=== PATIENT | female | born 1995 | race Caucasian/White ===

== ENCOUNTER 2024-12-19 16:05 | Emergency (ER) | payer MEDICAID, SELFPAY ==
[2024-12-19 16:28] VITALS: BP 140/81; PULSE 80; RESP 18; TEMP 36.7; O2SAT 99; BMI 31.2
--- NOTE | 2024-12-19 16:47 | CT_ITS ---
PROCEDURE INFORMATION: Exam: CT Lumbar Spine Without Contrast Exam date and time: 12/19/2024 5:03 PM Age: 29 years old Clinical indication: Low back pain; Additional info: Low back pain with radiculopathy TECHNIQUE: Imaging protocol: Computed tomography of the lumbar spine without contrast. Radiation optimization: All CT scans at this facility use at least one of these dose optimization techniques: automated exposure control; mA and/or kV adjustment per patient size (includes targeted exams where dose is matched to clinical indication); or iterative reconstruction. COMPARISON: No relevant prior studies available. FINDINGS: Bones/joints: The thoracolumbar spine demonstrates mild degenerative changes at multiple levels. There is minor concavity to the superior endplate of L1 which may reflect Schmorl's node changes. There is a limbus vertebra involving the anterior superior corner of L4 with marginal osteophytes. Minor endplate discogenic degenerative changes and marginal osteophytes are also present from L3 through S1. Vertebral body heights are otherwise within range of normal. No compression fractures. Alignment appears preserved. No significant central canal or neural foraminal stenosis at the L1-L2 level. No significant central canal, neural foraminal stenosis at the L2-L3 level. There is mild diffuse annular bulge at the L3-L4 level producing mild Medrol effacement upon the thecal sac and mild central canal stenosis. There is a posterior central bar/disc at the L4-L5 level resulting in moderate to marked central canal stenosis at this level. There is [id number] bilateral neural foraminal narrowing at this level. No significant central canal or neural foraminal stenosis at the L5-S1 level. Soft tissues: The paravertebral soft tissues are within range of normal. No significant soft tissue edema. No focal hematoma.There are mild degenerative changes of the sacroiliac joints. IMPRESSION: Moderate posterior central bar/disc at the L4-L5 level resulting in moderate to marked central canal stenosis. There is [id number] bilateral neural foraminal narrowing at this level. No acute posttraumatic osseous injury. 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
--- NOTE | 2024-12-19 17:10 | ED_ITS ---
<Statement entered by Stephanie Llanes DO - 12/20/24 00:22> I was consulted by the KALI, and we discussed the complexity of problems being addressed. I approve the treatment and management plan for this patient's care in the emergency department, thus performing a substantial portion of the medical decision making. Stephanie Llanes DO Discharge Plan Disposition Patient Disposition: Home, Self-Care Prescriptions Prescriptions: New tizanidine [Zanaflex] 4 mg capsule 4 mg PO Q8H PRN (Reason: muscle spasticity) Qty: 10 0RF prednisone 20 mg tablet 40 mg PO DAILY Qty: 10 0RF Referrals Follow up/Referrals: Say Franco MD [Nurse Practitioner, Pain Management] - See instructions Provider,MD Tita [Primary Care Provider, Medical] - See instructions Clinical Impressions Clinical Impression: Lumbar radiculopathy Instructions Patient Instructions: DI for Low Back Pain Print Language Print Language: Irish Discharge ED Provider: Stephanie Llanes General Adult HPI General Chief complaint: Back Pain/Injury Stated complaint: Severe Lumbar Pain Time Seen by Provider: 12/19/24 16:23 Mode of Arrival: Ambulatory Source of Information: Patient Description of Symptoms (Recalled from ER Triage Doc. by RN): Complaint of right lower back pain that started approx 2 days ago. Complaint of pain when she steps on her right leg that starts at her toes and goes up her leg. States she was being seen by [facility] but was discharged related to missed appointments. History of Present Illness HPI narrative: Alyse Lu is a 29-year-old female without significant past medical history who presents emergency room tonight with complaints of low back pain. Ms. Lu states that she has had lumbar pain with radiculopathy for several years now. Was going to [facility] down in [place] and has had ablations in the past. Was also given gabapentin and [place] in the past for pain control. States that she is missed a couple of appointments with them and has not been to see them in quite some time. Recently relocated [facility] and would prefer to see a painter ski edge closer to this area. Denies any recent trauma. States her back pain flared up about 2 days ago and reports pain radiating down into both knees. Does feel like her legs are weak at times due to the severe pain. Patient did walk in here. No dysuria or hematuria. No numbness or tingling, no saddle paresthesias noted. Back pain is rated a 9/10 currently. No other complaints at this time. Please note that the above description of symptoms, and this electronic medical record under categorization of recalled from ER triage doctor by RN are reflective of an initial nursing assessment, however, is not reflective of my full history and physical exam that was personally taken and clarified. Consequentially, this proceeding description of symptoms, which may include the patient's cauterized chief complaint in the EMR, do not reflect my personal clinical impression, and the ultimate description of the history of present ill ness stated complaints should be deferred to this section of this note. Unless stated otherwise were congruent with the section of the note, additional signs, symptoms, or incongruence can be interpreted as in or accurate with my clinical impression. Related Data Previous Rx's ?Medication ?Instructions ?Recorded prednisone 20 mg tablet 40 mg (2 x 20 mg) PO DAILY # 10 tabs 12/19/24 tizanidine 4 mg capsule (Zanaflex) 4 mg PO Q8H PRN mus adrian spasticity 12/19/24 #10 caps Allergies Allergy/AdvReac Type Severity Reaction Status Date / Time Penicillins Allergy Hives Verified 12/19/24 16:33 [facility] Disclaimer: The information contained in this section may have been updated after the patient was seen, as this information can be updated by other users. Social History Smoking Status: Current every day smoker alcohol intake: current current occupational status: other Travel in the last 8 weeks?: None ROS Obtained: Yes All systems reviewed & no additional complaints except as documented Physical Exam General General appearance: alert and in no apparent distress Head Head exam: atraumatic, normocephalic and normal inspection Eye Eye exam: Present normal appearance, PERRL and EOMI ENT ENT exam: Present normal exam, normal oropharynx, mucous membranes moist, TM's normal bilaterally and normal external ear exam Neck Neck exam: Present normal inspection, full ROM and trachea midline; Absent meningismus or lymphadenopathy Chest Chest inspection: Present normal inspection and symmetric chest wall rise; Absent tenderness Respiratory Respiratory exam: Present normal lung sounds bilaterally; Absent respiratory d istress Cardiovascular Cardiovascular exam: Present regular rate and normal rhythm; Absent JVD Abdominal Exam Abdominal exam: Present soft and normal bowel sounds; Absent distention, tenderness or guarding Extremities Exam Extremities exam: Present normal inspection, full ROM, normal capillary refill and other (2+ DTR bilateral lower extremities, negative clonus, 5 out of 5 strength bilateral lower extremities); Absent calf tenderness Back Exam Back exam: Present normal inspection; Absent tenderness Neurological Exam Neurological exam: Present alert and oriented X3 Psychiatric Psychiatric exam: Present normal affect and normal mood Skin Skin exam: Present warm, dry, intact and normal color Lymphatic Lymphatic Findings: no adenopathy Medical Decision Making Medical Records Screening: Per USPSTF and CDC recommendations, given the prevalence of disease in our region, it is our hospital?s policy to screen for HIV and viral Hepatitis for all patients aged 18 and over and those with ongoing risk factors. Niranjan Inquiry Pt receiving controlled substance: No Vital Signs: 12/19/24 16:28 12/19/24 19:39 Temperature 98.0 F 97.9 F Temperature Source Oral Pulse Rate 72 Pulse Rate [Radial] 80 Respiratory Rate 18 20 Blood Pressure 136/87 Blood Pressure [Right Arm] 140/81 Blood Pressure Mean [Right Arm] 100 Blood Pressure Source [Right Arm] Automatic Cuff Blood Pressure Position [Right Arm] Sitting 02 Sat by Pulse Oximetry 99 Oxygen Delivery Method Room Air Room Air Orders (Tests/Meds): ED MEDICATIONS Discontinued Medications Generic Name Dose Route Start Last Admin Trade Name Freq PRN Reason Stop Dose Admin Acetaminophen 1,000 mg 12/19/24 18:51 12/19/24 19:22 Acetaminophen 500mg Tab PO 12/19/24 18:52 1,000 mg ONCE ONE Administration Lidocaine 2 each 12/19/24 19:00 12/19/24 19:22 Lidocaine 5% Transdermal Patch TD 01/18/25 18:59 2 each Q24H LAVELL Administration ORDERS Category Date Time Status CT lumbar spine wo con Stat Cat Scan 12/19/24 16:47 Completed Medical Decision Narrative: In summary patient is an 29-year-old female who presents emergency department for evaluation of low back pain and radiculopathy down to both of her knees. No saddle paresthesias. No bowel bladder dysfunction. Denies any fever, no history of epidural abscess. Has had an ablation down at [facility] in [facility] about a year ago, states that this greatly improved her back pain. 2+ DTRs bilateral lower extremities, negative for clonus. Patient is hemodynamically stable upon arrival, afebrile. Unremarkable nonfocal phys ical exam, patient with 5 out of 5 strength in bilateral lower extremities. No red flag signs. Differential diagnosis includes herniated disc, chronic lumbar sciatica, epidural abscess. Initial workup will be conducted with CT of the lumbar spine without contrast. Initial interventions include Tylenol for pain and lidocaine patch initial workup reviewed by me included a CT of the lumbar spine without contrast. Did show a moderate posterior central disc at L4-5 resulting in moderate canal stenosis, mild to moderate bilateral neural foraminal narrowing at this level, no fracture noted. Upon repeat evaluation patient with mild improvement in back pain with lidocaine patch and Tylenol. You do have a moderate herniated disc which you state you have had issues within the past and had been following with pain management and had several nerve ablations in the lumbar spine previously. I will make you a referral to Dr. Franco who is our painter ski edge here in [facility] since you have relocated up from [place]. I will send you home with some muscle relaxers and and a 5-day pulse dose of steroids. Given this patient is medically stable and appropriate for discharge. Critical Care Critical Care Time Critical Care Time: No
[2024-12-19] MEDS: ACETAMINOPHEN 500MG TAB 1000 MG PO (19:22)
[2024-12-19] MEDS: LIDOCAINE 5% TRANSDERMAL PATCH 2 EACH TD (19:22)
[2024-12-19 19:39] VITALS: BP 136/87; PULSE 72; RESP 20; TEMP 36.6; O2SAT 98
== END 2024-12-19 19:42 | disposition home or self-care (01) ==
PROVIDERS: Emergency Provider Student in an Organized Health Care Education/Training Program
DX: M54.16 Radiculopathy, lumbar region (principal)
CPT/HCPCS: 72131; 99284

== ENCOUNTER 2025-01-29 22:23 | Emergency (ER) | payer MEDICAID, SELFPAY ==
[2025-01-29 22:31] VITALS: BP 137/95; PULSE 78; RESP 18; TEMP 36.8; O2SAT 100; BMI 34.3
--- NOTE | 2025-01-29 23:02 | HMH.EDGENADL ---
Discharge Plan Disposition Patient Disposition: Home, Self-Care Condition: Good Prescriptions Prescriptions: New ondansetron 4 mg tablet,disintegrating 4 mg PO Q6H PRN (Reason: nausea and vomiting) Qty: 10 0RF No Action tizanidine [Zanaflex] 4 mg capsule 4 mg PO Q8H PRN (Reason: muscle spasticity) Qty: 10 0RF prednisone 20 mg tablet 40 mg PO DAILY Qty: 10 0RF Referrals Follow up/Referrals: Provider,Referral, MD [Primary Care Provider, Medical] - See instructions Activity Restrictions/Add. Instructions Additional Instructions/Restrictions: You were evaluated in the ER and are believed to be appropriate for discharge at this time. Take tylenol and ibuprofen at home if needed for pain, do not exceed the recommended dose on the bottle. Drink water and eat a small snack each time you take these medications to avoid side effects. Drink plenty of water and stay hydrated. Take the prescribed Zofran (ondansetron) if needed for nausea or vomiting. Make an appointment with your primary care doctor for reevaluation in 2 to 3 days. Return to the ER with any new, worsening, or otherwise concerning symptoms. Clinical Impressions Clinical Impression: Acute right flank pain, Abdominal pain, RLQ Print Language Print Language: Panamanian Discharge ED Provider: Mickey Espinoza Adult HPI General Chief complaint: PAIN Stated complaint: abdominal pain and back pain Time Seen by Provider: 01/29/25 22:27 Mode of Arrival: Ambulatory Source of Information: Patient Description of Symptoms (Recalled from ER Triage Doc. by RN): patient presents with pain in her lower back that wraps around to her lower abdomen. patient stated this started a few hours ago and rates it 9/10. patient stated she has had touble urinating, no urgency, frequency, blood in urine. History of Present Illness HPI narrative: 30-year-old female with history of previous cholecystectomy presents to the ER with complaints of pain in her right low back radiating into the right low abdomen and area of the bladder. Patient reports symptoms started about 1 to 1-1/2 hours prior to arrival. She rates the pain 9 out of 10. She states it was sudden in onset. She reports discomfort like pressure with urination but no urgency, frequency, or blood in the urine. No burning with urination. Denies fevers, chest pain, difficulty breathing, cough, congestion, vomiting, diarrhea, constipation, or any other associated symptoms. She reports no history of kidney stones and states she has no symptoms like this in the past. She reports no medications for her symptoms prior to arrival. She does states she has a history of ovarian cyst but this does not feel anything like the pain she has had in the past. Related Data Previous Rx's ?Medication ?Instructions ?Recorded prednisone 20 mg tablet 40 mg (2 x 20 mg) PO DAILY #10 tabs 12/19/24 tizanidine 4 mg capsule (Zanaflex) 4 mg PO Q8H PRN muscle spasticity 12/19/24 #10 caps ondansetron 4 mg disintegrating 4 mg PO Q6H PRN nausea and 01/30/25 tablet vomiting #10 tabs Allergies Allergy/AdvReac Type Severity Reaction Status Date / Time Penicillins Allergy Hives Verified 12/19/24 16:33 [facility] Disclaimer: The information contained in this section may have been updated after the patient was seen, as this information can be updated by other users. Social History (Updated 12/19/24 @ 20:08 by Clover Lee APRN) Smoking Status: Current every day smoker alcohol intake: current current occupational status: other Travel in the last 8 weeks?: None Have you lived/traveled outside US in past 30 days?: No Contact w/someone who lives/traveled outside US past 30 days?: No Exposure to someone with infectious disease in past 14 days?: No Do you have a fever (greater than 100.4 F or 38 C)?: No Have you tested positive for COVID-19?: No Exposed to someone with COVID-19 in past 14 days?: No Do you have a sore throat?: No Do you have a cough?: No Do you have any weakness?: No Do you have any diarrhea?: No Are you experiencing any unusual bleeding?: No Do you have any muscle aches/pain?: No Do you have any abdominal pain?: No Are you experiencing loss of taste or smell?: No ROS Obtained: Yes Systems reviewed as appropriate & no additional complaints except as documented Per HPI Physical Exam General General appearance: alert and in no apparent distress Head Head exam: atraumatic and normocephalic Eye Eye exam: Present PERRL and EOMI ENT ENT exam: Present mucous membranes moist Neck Neck exam: Present normal inspection and full ROM Chest Chest inspection: Present symmetric chest wall rise Respiratory Respiratory exam: Present normal lung sounds bilaterally; Absent respiratory distress, wheezes or stridor Cardiovascular Cardiovascular exam: Present regular rate and normal rhythm Abdominal Exam Abdominal exam: Present soft and tenderness (Right lower quadrant, suprapubic); Absent distention, guarding, rebound or rigidity Extremities Exam Extremities exam: Present full ROM Back Exam Back exam: Present CVA tenderness (R) (Lower right CVA tenderness); Absent CVA tenderness (L) or vertebral tenderness Neurological Exam Neurological exam: Present alert and oriented X3; Absent motor sensory deficit Psychiatric Psychiatric exam: Present normal affect and normal mood Skin Skin exam: Present warm and dry Medical Decision Making Medical Records Medical records reviewed: Yes I reviewed the patient's medical records. Screening: Per USPSTF and CDC recommendations, given the prevalence of disease in our region, it is our hospital?s policy to screen for HIV and viral Hepatitis for all patients aged 18 and over and those with ongoing risk factors. Niranjan Inquiry Pt receiving controlled substance: No Vital Signs: 01/29/25 22:31 01/30/25 00:42 Temperature 98.2 F 98.7 F Temperature Source Oral Oral Pulse Rate 75 Pulse Rate [Right Radial] 78 Respiratory Rate 18 18 Blood Pressure 120/80 Blood Pressure [Right Arm] 137/95 H Blood Pressure Mean [Right Arm] 109 Blood Pressure Source Automatic Cuff Blood Pressure Source [Right Arm] Automatic Cuff Blood Pressure Position Supine Blood Pressure Position [Right Arm] Sitting 02 Sat by Pulse Oximetry 100 Oxygen Delivery Method Room Air Room Air Lab Data Lab Results 01/29/25 22:39: WBC 10.3, RBC 4.39, Hgb 13.2, Hct 40.2, MCV 91.6, MCH 30.1, MCHC 32.8, RDW 13.6, Plt Count 307, MPV 10.9 H, Neut % (Auto) 62.8, Lymph % (Auto) 25.8, [place] % (Auto) 7.0, Eos % (Auto) 3.6, Baso % (Auto) 0.5, Neut # (Auto) 6.5, Lymph # (Auto) 2.7, [place] # (Auto) 0.7, Eos # (Auto) 0.4, Baso # (Auto) 0.1, PT 10.9, INR 0.98, Sodium 135 L, Potassium 4.0, Chloride 103, Carbon Dioxide 26, Anion Gap 10.0, BUN 14, Creatinine 0.80, Estimated Creat Clear 140, Estimated GFR 83, Est GFR ( Amer) 101, Glucose 93, Calcium 9.3, Total Bilirubin 0.5, AST 22, ALT 12, Alkaline Phosphatase 52, Total Protein 7.4, Albumin 3.7, Globulin 3.7 H, Albumin/Globulin Ratio 1.0 L, Serum HCG, Qual Negative 01/29/25 22:40: Urine Color Yellow, Urine Appearance Clear, Urine pH 6.0, Ur Specific [place] 1.015, Urine Protein Negative, Urine Glucose (UA) Negative, Urine Ketones Negative, Urine Blood Negative, Urine Nitrate Negative, Urine Bilirubin Negative, Urine Urobilinogen 0.2, Ur Leukocyte Esterase Negative, Urine RBC None, Urine WBC 5-10, Ur Squamous Epith Cells 10-20, Urine Bacteria 1+ 01/29/25 22:39 01/29/25 22:39 Orders (Tests/Meds): ED MEDICATIONS Discontinued Medications Generic Name Dose Route Start Last Admin Trade Name Burton PRN Reason Stop Dose Admin Lactated Ringer's 1,000 mls @ 999 mls/hr 01/29/25 23:07 01/30/25 00:39 Lactated Ringer's 1000 Ml Bag IV 01/30/25 00:07 Infused .Q1H1M ONE Infusion Iopamidol 75 ml 01/29/25 23:55 01/29/25 23:56 Iopamidol-370 (76%);100ml Bottle IV 01/29/25 23:56 75 ml ONCE ONE Administration Ketorolac Tromethamine 30 mg 01/29/25 23:07 01/29/25 23:37 Ketorolac 30mg/Ml Vial IV 01/29/25 23:08 30 mg ONCE ONE Administration Morphine Sulfate 4 mg 01/29/25 23:07 01/29/25 23:37 Morphine 4mg/Ml Syringe IV 01/29/25 23:08 4 mg ONCE ONE Administration Ondansetron HCl 4 mg 01/29/25 23:07 01/29/25 23:37 Ondansetron 4mg/2ml Vial IV 01/29/25 23:08 4 mg ONCE ONE Administration Sodium Chloride 10 ml 01/29/25 23:55 01/29/25 23:56 Sodium Chloride 0.9% 10ml Syr (Rad Only) IV 02/28/25 23:54 10 ml NEEDED PRN Administration Maintain IV Site ORDERS Category Date Time Status CT abdomen pelvis w con Stat Cat Scan 01/29/25 23:07 Completed CBC w/Auto Diff [Complete Blood Count Auto Diff] Stat Lab 01/29/25 22:39 Completed CMP [Comprehensive Metabolic Panel] Stat Lab 01/29/25 22:39 Completed HCG Qualitative, Serum Stat Lab 01/29/25 22:39 Completed PT INR [Prothrombin Time INR] Stat Lab 01/29/25 22:39 Completed UA [Urinalysis and Microscopic] Stat Lab 01/29/25 22:40 Completed Medical Decision Narrative: In summary, this 30-year-old female with comorbidities described in the HPI presents to the emergency department today with right lower flank/right lower quadrant pain, pressure with urination, no dysuria or hematuria. On initial evaluation patient is hemodynamically stable, afebrile, GCS 15, nontoxic-appearing, patient has very low right CVA tenderness to percussion as well as right lower quadrant and suprapubic tenderness to palpation of the abdomen with no rebound or guarding, no peritonitic findings, remainder of exam benign. Differential diagnosis includes but is not limited to UTI, pyelonephritis, nephrolithiasis, ureterolithiasis, hydronephrosis, kidney dysfunction, electrolyte abnormality, also considered the possibility of appendicitis, ovarian cyst, ovarian torsion but I suspect much more highly a urinary stone or infection. Based on these concerns, I ordered hematologic and serum labs, urine studies, CT abdomen pelvis with contrast. For initial management patient received IV fluids, Toradol, morphine, Zofran. Labs personally reviewed demonstrate no leukocytosis or anemia, normal platelets, PT/INR normal, CMP nonactionable, notably no transaminitis or kidney dysfunction, hCG negative, UA contaminated with significant squamous cells and only few WBCs present, I believe this represents contamination and not infection. Will not treat for infection. CT abdomen pelvis personally interpreted demonstrates no appendicitis, no bowel obstruction, no evidence of ureterolithiasis or hydronephrosis appreciated, no ovarian cyst or mass. See radiology read for final interpretation. I actually reached out to the reading radiologist since patient reported a history of ovarian cysts and verified that there was not any ovarian cyst or mass present, he stated there were a few very small, normal-appearing follicles but no cyst or mass. On reassessment patient has had improvement of symptoms. We discussed the possibility that patient had a kidney stone that she passed or that is small enough to be between the slices of the CT scan. I suspect the most likely underlying cause of her symptoms based on the way she described her pain onset, progress, and improvement is that she had a rapid transit kidney stone. We did discuss the very low likelihood of other infectious etiology given she has no leukocytosis, no fever. We also discussed the absence of any surgical pathology at this time. With her reassuring labs, imaging, and symptomatic improvement I believe she is appropriate for discharge at this time and she is comfortable with this plan. I prescribed Zofran. Patient was given instructions on symptomatic management, follow up instructions, and strict return precautions for the emergency department. Patient indicated understanding and was discharged in stable condition. Critical Care Critical Care Time Critical Care Time: No
[2025-01-29 23:05] LABS: Microscopic, Urine URINE MICROSCOPIC (MICROSCOPIC)
--- NOTE | 2025-01-29 23:07 | CT_ITS ---
PROCEDURE INFORMATION: Exam: CT Abdomen And Pelvis With Contrast Exam date and time: 01/29/2025 11:49 PM Age: 30 years old Clinical indication: Abdominal pain; Additional info: R flank pain into low pelvis/suprapubic TECHNIQUE: Imaging protocol: Computed tomography of the abdomen and pelvis with contrast. Radiation optimization: All CT scans at this facility use at least one of these dose optimization techniques: automated exposure control; mA and/or kV adjustment per patient size (includes targeted exams where dose is matched to clinical indication); or iterative reconstruction. Contrast material: ISOVUE; Contrast volume: 75 ml; Contrast route: IV; COMPARISON: CT LUMBAR SPINE WO CON 12/19/2024 5:03 PM FINDINGS: Liver: Hepatic granulomas. Gallbladder and biliary ducts: Cholecystectomy. Pancreas: Normal. No ductal dilation. Spleen: Unremarkable. Adrenal glands: Unremarkable. Kidneys and ureters: Normal. No hydronephrosis. Stomach and bowel: Intestinal nonrotation. No mechanical obstruction. No mucosal thickening. Appendix: No evidence of appendicitis. Intraperitoneal space: No free air. No fluid collection. Vasculature: Unremarkable. No abdominal aortic aneurysm. Lymph nodes: No enlarged lymph nodes. Urinary bladder: Unremarkable as visualized. Reproductive: Unremarkable as visualized. Bones/joints: No acute fracture. Soft tissues: Unremarkable. IMPRESSION: No acute abdominopelvic abnormality.
[2025-01-29 23:10] LABS: Bilirubin,Urine Negative (Negative); Color,Urine YELLOW (Yellow); Glucose,Urine (UA) Negative (Negative); Ketones,Urine Negative (Negative); Leukocyte Esterase,Urine Negative (Negative); PH,Urine 6.0 (5.0-8.5); Protein,Urine Negative (Negative); Specific Gravity, Urine 1.015 (1.005-1.030); Urobilinogen,Urine 0.2 EU/dl (0.2)
[2025-01-29 23:15] LABS: Hematocrit 40.2 % (37.0-47.0); Hemoglobin 13.2 g/dL (12.2-16.2); Immature Granulocytes % 0.3 %; Mean Corpuscular HGB Conc 32.8 g/dL (31.8-35.4); Mean Corpuscular Hemoglobin 30.1 pg (27.0-31.2); Mean Corpuscular Volume 91.6 fl (81-99); Nucleated Red Blood Cells % 0 %; Platelet Count 307 K/mm3 (142-424); Red Blood Count 4.39 M/mm3 (4.20-5.40); Red Cell Distribution Width-SD 46.5 fL; White Blood Count 10.3 K/mm3 (4.8-10.8)
[2025-01-29 23:29] LABS: HCG Qualitative, Serum Negative (Negative)
[2025-01-29 23:30] LABS: Alanine Aminotransferase 12 U/L (12-78); Albumin Level 3.7 g/dl (3.5-5.0); Albumin/Globulin Ratio 1.0 (1.1-1.8); Alkaline Phosphatase 52 U/L (38-126); Anion Gap 10.0 mEq/L (5-15); Aspartate Amino Transferase 22 U/L (14-36); Bilirubin,Total 0.5 mg/dl (0.2-1.3); Blood Urea Nitrogen 14 mg/dl (7-17); Calcium 9.3 mg/dl (8.4-10.2); Carbon Dioxide 26 mmol/L (22.0-30.0); Chloride 103 mmol/L (98-107); Creatinine Clearance Estimated 140 mL/min (50-200); Creatinine,Serum 0.80 mg/dl (0.52-1.04); Estimated Glomerular Filt Rate 83 ml/min (>60); GFR (African American) 101 ML/MIN (>60); Globulin 3.7 g/dL (1.3-3.2); Glucose 93 mg/dl (74-100); Potassium 4.0 mmoL/L (3.5-5.1); Sodium 135 mmol/L (136-145); Total Protein,Serum 7.4 g/dl (6.3-8.2)
[2025-01-29 23:32] LABS: INR 0.98 (0.9-1.1); Prothrombin Time 10.9 seconds (10.1-12.5)
[2025-01-29] MEDS: MORPHINE 4MG/ML SYRINGE 4 MG IV (23:37)
[2025-01-29] MEDS: KETOROLAC 30MG/ML VIAL 30 MG IV (23:37)
[2025-01-29] MEDS: LACTATED RINGERS 1000ML 1,000 ML 999 ML IV (23:37)
[2025-01-29] MEDS: ONDANSETRON 4MG/2ML VIAL 4 MG IV (23:37)
[2025-01-29 23:49] LABS: Bacteria,Urine 1+ /lpf
[2025-01-29] MEDS: IOPAMIDOL-370 (76%);100ML BOTTLE 75 ML IV (23:56)
[2025-01-29] MEDS: SODIUM CHLORIDE 0.9% 10ML SYR (RAD ONLY) 10 ML IV (23:56)
[2025-01-30 00:42] VITALS: BP 120/80; PULSE 75; RESP 18; TEMP 37.1; O2SAT 98
== END 2025-01-30 00:50 | disposition home or self-care (01) ==
PROVIDERS: Emergency Medicine; Emergency Provider Emergency Medicine
DX: R10.31 Right lower quadrant pain (principal); R10.A1 Flank pain, right side; F17.210 Nicotine dependence, cigarettes, uncomplicated
CPT/HCPCS: 74177; 80053; 81001; 84703; 85025; 85610; 96361; 96374; 96375; 99284; J1885; J2270; J2405; J7120; Q9967